=== PATIENT | male | born 1940 | race Caucasian/White ===

== ENCOUNTER 2016-04-19 09:40 | Inpatient (IN) | payer MEDICARE, BC ==
[2016-04-19] MEDS ORDERED: Ondansetron INJ* 2 MG/ML VIAL IV ONE (10:31)
[2016-04-19] MEDS ORDERED: HYDROmorphone* 1 MG/ML 1 ML SYR IV ONE (10:31)
[2016-04-19 11:25] LABS: Hematocrit 47 % (42-52); Hemoglobin 15.6 g/dl (14.0-18.0); Mean Corpuscular HGB Conc 34 g/dl (31-36); Mean Corpuscular Hemoglobin 31 pg (27-31); Mean Corpuscular Volume 93 fL (80-94); Mean Platelet Volume 8 um3 (7.4-10.4); Red Blood Count 4.99 10^6/ul (4.0-5.4); Red Cell Distribution Width 13 % (10.5-15); White Blood Count 15.9 10^3/ul (3.5-10.8)
[2016-04-19 11:45] LABS: Albumin 4.2 g/dL (3.2-5.2); BUN/Creatinine Ratio 21.4 (8-20); C Reactive Protein 65.87 mg/L (< 5.00); Calcium 9.3 mg/dL (8.6-10.3); EGFR African American 82.7 (>60); EGFR Non-African American 64.3 (>60); Globulin 2.9 g/dL (2-4); Potassium 4.1 mmol/L (3.5-5.0); Total Bilirubin 1.2 mg/dL (0.2-1.0); Total Protein 7.1 g/dL (6.4-8.9)
[2016-04-19] MEDS ORDERED: Iohexol 300* (CONTRAST) 10 ML SDV IV ONE ×2 (11:47→11:50)
[2016-04-19 11:50] LABS: Urine Bacteria Absent (Absent); Urine Bilirubin Negative (Negative); Urine Glucose Negative (Negative); Urine Nitrite Negative (Negative)
--- NOTE | 2016-04-19 12:31 | RAD ---
INDICATION: Diffuse abdominal pain. COMPARISON: Comparison is made with prior CTs of the abdomen and pelvis from August 04, 2007 and February 06, 2016. TECHNIQUE: A CT scan of the abdomen and pelvis was performed with intravenous and oral contrast following intravenous injection of 127 ml of Omnipaque 300 nonionic contrast. Contiguous axial sections were obtained from the lung bases through the symphysis pubis. Images were reconstructed in the coronal and sagittal planes. FINDINGS: There are small dependent infiltrates in both lower lobes suggestive of atelectasis. No pleural effusion is present. The liver is normal in size and decreased in attenuation. There are several small hypodense lesions present within the anterior aspect of the liver. The 2 largest appear to represent cysts measuring up to 1.2 cm in size and unchanged from the prior study. No calcified gallstones are seen. No intra or extra hepatic ductal distention is seen. The spleen is normal in size. There is a hyperenhancing lesion present in the anterolateral aspect of the spleen measuring 1.2 cm in size. This is seen on the prior 2 studies and is unchanged from the prior exam. This may represent a hemangioma although is a nonspecific finding. There is mild diffuse enlargement of the pancreas. There is interstitial stranding around the pancreas in the retroperitoneal fat. These findings are nonspecific although would be most consistent with pancreatitis. The pancreas enhances normally. There is no evidence for necrosis or hemorrhage. In addition there is a small amount of free intraperineal fluid in the paracolic gutters and within the pelvis. The kidneys and adrenal glands are normal in size. No hydronephrosis is seen. No significant focal renal abnormality is seen. The aorta is normal in caliber with moderate calcific plaque present. No significant enlarged retroperitoneal lymph nodes are seen. The stomach, small and large bowel appear nondistended. The appendix is within normal limits. There is mild to moderate descending and sigmoid diverticulosis without evidence for diverticulitis. No free intraperitoneal air is seen. No significant focal osseous abnormality is seen. IMPRESSION: FINDINGS MOST CONSISTENT WITH ACUTE INTERSTITIAL PANCREATITIS. RECOMMEND CLINICAL CORRELATION.
[2016-04-19] MEDS ORDERED: Ondansetron INJ* 2 MG/ML VIAL IV PRN (13:43)
[2016-04-19] MEDS: Heparin VIAL(*) 5000 UNITS/ML VIAL (FIVE THOUSAND) SUBCUT SCH ×2 (14:57→20:54)
[2016-04-19] MEDS: Pantoprazole IV* 40 MG IV SCH (15:04)
[2016-04-19] MEDS: Morphine INJ* 2 MG/ML 1 ML SYRINGE IV PRN ×2 (16:27→20:54)
--- NOTE | 2016-04-19 19:46 | HP ---
HISTORY AND PHYSICAL: ADDENDUM: Mr. Hendrix is a 75-year-old male with a history of hypertension, osteoarthritis, who prese nts complaining of abdominal pain. His CT shows acute pancreatitis. He is going to be admitted to the medical floor and treated adequately with n.p.o. status and intravenous fluid resuscitation. Fo r further details of the patient's presentation and plan, please see history and physical dictated Lorrie Calderon NP, on 04/19/16, with which I agree. [id number]/[facility] #: [id number]
--- NOTE | 2016-04-19 19:46 | HP ---
HISTORY AND PHYSICAL: DATE OF ADMISSION: 04/19/16 PRIMARY CARE PROVIDER: Jonas Wetzel MD ATTENDING PHYSICIAN: Mikayla Valenzuela MD* (dictated by Shaheen Hernandez NP). CHIEF COMPLAINT: Abdominal pain with associated nausea and vomiting. HISTORY OF PRESENT ILLNESS: Mr. Hendrix is a 75-year-old male with past medical history significant for hypertension, who reports yesterday after eating some chilly, he developed diaphoresis, dizziness, paleness that progressed to nausea , vomiting, and abdominal pain. The patient reports epigastric pain that radiated to his lower abdomen. The patient also reported shortness of breath during the episode of pain. The patient states that 2 days prior, his stomach felt off, "tight." The patient denies any fever, chills, difficulty urinating, diarrhea or constipation. The patient reports some nausea and vomiting that resolved earlier this morning. The patient also reports rib pain after a fall and injury to his ribs back in January. Due to concern for the patient's continued abdominal pain and nausea and vomiting, he presented to the emergency room for further evaluation of his symptoms. While in the emergency room, the patient received IV pain medication and Zofran and had an abdominal pelvis CT scan showing findings consistent with a pancreatitis. Hospitalists were asked to evaluate the patient for admission. PAST MEDICAL HISTORY: Hypertension. PAST SURGICAL HISTORY: 1. 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 2. Status post a fistula removed from his buttock in the . HOME MEDICATIONS: Include, 1. Lisinopril 30 mg oral daily. 2. Hydrochlorothiazide 12.5 mg oral daily. 3. Fish oil 1000 mg oral daily. 4. Multivitamin 1 tablet oral daily. 5. Glucosamine 1000 mg oral daily. 6. Vitamin C 1000 mg oral daily. 7. Aspirin 81 mg oral daily. 8. MSM 1500 mg oral daily. ALLERGIES: PENICILLIN causes hives. FAMILY HISTORY: The patient denies any family history of coronary artery disease. The patient's mother had diet controlled diabetes mellitus. The patient's father had a history of colorectal cancer. SOCIAL HISTORY: The patient is a former smoker. He quit smoking cigarettes approximately 30 years ago and then smoked cigars intermittently and quit smoking cigars approximately 5 years ago. The patient denies recreational drug use. The patient was very vague in his alcohol intake, stating that he drinks as much as he feels like, sometimes daily but not always. The patient is retired, he used to work as a drafter. The patient is and lives with his , Val Hendrix, who will be his surrogate decision maker in the event he is unable to make decisions for himself. REVIEW OF SYSTEMS: I performed a 14-point review of systems. All the pertinent positives and negatives are mentioned in the history of present illness. The remaining review of systems is negative. PHYSICAL EXAMINATION GENERAL APPEARANCE: The patient is alert, pleasant, and appears to be in no acute distress. VITAL SIGNS: Temperature 98.1, heart rate 57, respiratory rate 18, O2 sat 95% on room air, blood pressure 141/57. HEENT: Normocephalic, atraumatic. Pupils are equal and reactive to light. Extraocular movements are intact. Mucous membranes are dry. RESPIRATORY: There is no accessory muscle use. Lungs are clear to auscultation bilaterally. CARDIOVASCULAR: Regular rate and rhythm. S1 and S2 present. There is no murmurs, rubs, or gallops heard. ABDOMEN: Soft, nondistended. There is tenderness to palpation to the epigastric area and right upper quadrant. There are some hypoactive bowel sounds present x4. EXTREMITIES: There is no lower extremity edema. DP and PT pulses are 2+ and symmetric. MUSCULOSKELETAL: There is no clubbing or cyanosis noted. The patient exhibits good strength in all extremities. NEUROLOGIC: The patient is alert and oriented x4. Cranial nerves II through X11 are grossly intact. PSYCHOLOGICAL: The patient is calm and cooperative. SKIN: There is no rashes or abnormalities seen. DIAGNOSTIC STUDIES/LAB DATA: Sodium 134, potassium 4.1, chloride 99, CO2 of 27 , BUN 24, creatinine 1.12, glucose 150. White blood cell count 15.9, hemoglobin 15.6, hematocrit 47, platelet count 260. CRP 65.87, AST 23, ALT 14, bilirubin 1.20, lipase 864. Urinalysis significant for protein 1+ and blood 1+. Abdomen and pelvis CT from today. Radiologist's impression: Findings most consistent with acute interstitial pancreatitis. Recommend clinical correlation. IMPRESSION: Mr. Hendrix is a 75-year-old male with past medical history significant for hypertension, who presents for abdominal pain with associated nausea and vomiting. He will be admitted as an inpatient for acute pancreatitis. ASSESSMENT: 1. Acute pancreatitis. The patient will be placed on bowel rest and n.p.o. at this time. As his pain improves, we will consider starting him on a clear liquid diet. The patient will have IV fluids. We will recheck the patient's labs in the morning, trending his lipase and amylase. We will also follow the patient's liver function tests. We will add a triglyceride to the patient's emergency room labs. We will also get a gallbladder ultrasound. 2. Hypertension. At this time I will hold the patient's lisinopril and hydrochlorothiazide. 3. Fluid, electrolytes, and nutrition. N.p.o. The patient will have LR running at 125 mL in hour. 4. Code status. Full code. 5. DVT prophylaxis. The patient is at moderate risk and on subcu heparin. 6. Disposition. Inpatient. TIME SPENT: The time spent for this admission was 60 minutes, 35 minutes was spent face to face with the patient and discussing medications, past medical history and the events leading up to his arrival today and performing a physical examination. The case has been reviewed with the attending, Dr. Valenzuela, who agrees with the plan of care. Reviewed by SHAHEEN HERNANDEZ, DONNA-Pancho 04/19/16 6004 ADDENDUM TO HISTORY AND PHYSICAL: Mr. Hendrix is a 75-year-old male with a history of hypertension, osteoarthritis, who presents complaining of abdominal pain. His CT shows acute pancreatitis. He is going to be admitted to the medical floor and treated adequately with n.p.o. status and intravenous fluid resuscitation. For further details of the patient's presentation and plan, please see history and physical dictated by Shaheen Hernandez NP, on 04/19/16, with which I agree. Mikayla Valenzuela MD CC: Jonas Wetzel MD* [id number]/[facility] #: [id number]/[facility] #: [id number] ARMIDA
--- NOTE | 2016-04-19 22:43 | RAD ---
Indication: Pancreatitis. Real-time sonography of the right upper quadrant was performed. The liver is normal in size. Anechoic lesions in the right lobe measuring 14 x 14 x 14 mm and 8 x 7 x 7 mm appear to correspond to cysts. No other focal lesions or intrahepatic biliary duct dilatation is noted. The gallbladder demonstrates no gallstones, pericholecystic fluid or wall thickening. Common duct measures 5 mm. The pancreas is not well visualized. The right kidney measures 12.4 x 4.7 x 5.1 cm with no hydronephrosis. The aorta and inferior vena cava are limited due to overlying gas. IMPRESSION: No evidence of cholelithiasis or biliary duct dilatation is noted.
[2016-04-20] MEDS: Morphine INJ* 2 MG/ML 1 ML SYRINGE IV PRN ×4 (03:30→19:35)
[2016-04-20 06:18] LABS: Hematocrit 44 % (42-52); Hemoglobin 14.9 g/dl (14.0-18.0); Mean Corpuscular HGB Conc 34 g/dl (31-36); Mean Corpuscular Hemoglobin 32 pg (27-31); Mean Corpuscular Volume 94 fL (80-94); Mean Platelet Volume 8 um3 (7.4-10.4); Red Blood Count 4.72 10^6/ul (4.0-5.4); Red Cell Distribution Width 14 % (10.5-15); White Blood Count 17.3 10^3/ul (3.5-10.8)
[2016-04-20 06:33] LABS: Albumin 3.5 g/dL (3.2-5.2); BUN/Creatinine Ratio 22.5 (8-20); Calcium 8.7 mg/dL (8.6-10.3); EGFR African American 107.8 (>60); EGFR Non-African American 83.8 (>60); Globulin 2.6 g/dL (2-4); Potassium 4.4 mmol/L (3.5-5.0); Total Bilirubin 1.3 mg/dL (0.2-1.0); Total Protein 6.1 g/dL (6.4-8.9)
[2016-04-20] MEDS: Heparin VIAL(*) 5000 UNITS/ML VIAL (FIVE THOUSAND) SUBCUT SCH ×3 (06:46→21:43)
[2016-04-20] MEDS: Aspirin Low Dose CHEW TAB* 81 MG PO SCH (07:31)
--- NOTE | 2016-04-20 07:46 | ED ---
Gordon May Matthew, scribed for Dawson Younger MD on 04/19/16 at 1218 . Abdominal Pain/Male - HPI Summary HPI Summary: A 75 y/o male presents to the ED with sudden, constant, diffuse abdominal pain since yesterday. He's unable to describe the pain, its rated 8/10 in severity, and worse with movement and deep breaths. Associated symptoms include vomiting - yesterday, appetite, and fever. The patient currently denies nausea. He has a Hx of 4 fractured ribs in 01/2017. His last BM was yesterday. PMHx includes HTN. - History of Current Complaint Chief Complaint: EDAbdPain Stated Complaint: ABD PAIN Time Seen by Provider: 04/19/16 10:15 Hx Obtained From: Patient Onset/Duration: Sudden Onset, Lasting Days, Still Present Timing: Constant Severity Initially: Moderate Severity Currently: Moderate Pain Intensity: 8 Pain Scale Used: 0-10 Numeric Location: Diffuse Radiates: No Aggravating Factor(s): Movement, Deep Breaths Alleviating Factor(s): Nothing Associated Signs And Symptoms: Positive: Fever, Decreased Appetite, Vomiting. Negative: Nausea - Allergies/Home Medications Allergies/Adverse Reactions: Allergies Allergy/AdvReac Type Severity Reaction Status Date / Time Penicillins Allergy Hives Verified 04/19/16 10:08 Home Medications: Home Medications Ascorbic Acid TAB* [Vitamin C TAB*] 1,000 mg PO DAILY 04/19/16 [History Confirmed 04/19/16] Glucosamine Hydrochloride [Glucosamine] 500 mg PO DAILY WITH MEAL 04/19/16 [ History Confirmed 04/19/16] Hydrochlorothiazide TAB* 12.5 mg PO DAILY WITH MEAL 04/19/16 [History Confirmed 04/19/16] Methylsulfonylmethane [MSM] 1,500 mg PO DAILY 04/19/16 [History Confirmed ] Multiple Vitamins W/ Minerals [Multivitamin Adults] 1 tab PO DAILY WITH MEAL 04/06 [History Confirmed 04/19/16] [place]-3 Fatty Acids [Fish Oil] 1,000 mg PO DAILY WITH MEAL 04/19/16 [History Confirmed 04/19/16] PMH/Surg Hx/FS Hx/Imm Hx Endocrine/Hematology History: Denies: Hx Diabetes Cardiovascular History: Reports: Hx Hypertension Denies: Hx Pacemaker/ICD History: Denies: Hx Renal Disease Sensory History: Denies: Hx Hearing Aid Psychiatric History: Denies: Hx Panic Disorder - Surgical History Surgery Procedure, Year, and Place: FISTULA REMOVED FROM BUTTOCK Infectious Disease History: No Infectious Disease History: Denies: Traveled Outside the [place] in Last 30 Days - Family History Known Family History: Positive: Other - Colon [place] - Social History Alcohol Use: None Hx Substance Use: No Substance Use Type: Reports: None Hx Tobacco Use: No Smoking Status (MU): Never Smoked Tobacco Review of Systems Positive: Fever Eyes: Negative ENT: Negative Cardiovascular: Negative Respiratory: Negative Positive: Abdominal Pain - diffuse, Vomiting - yesterday . Negative: Nausea Genitourinary: Negative Musculoskeletal: Negative Skin: Negative Neurological: Negative Psychological: Normal All Other Systems Reviewed And Are Negative: Yes Physical Exam Triage Information Reviewed: Yes Vital Signs On Initial Exam: Initial Vitals Temp Pulse Resp BP Pulse Ox 98.1 F 57 20 145/62 99 04/19/16 09:41 04/19/16 09:41 04/19/16 09:41 04/19/16 09:41 04/19/16 09:41 Vital Signs Reviewed: Yes Appearance: Positive: Well-Nourished, Obese Skin: Positive: Warm, Skin Color Reflects Adequate Perfusion, Dry Head/Face: Positive: Normal Head/Face Inspection Eyes: Positive: Normal ENT: Positive: Normal ENT inspection Neck: Positive: Supple, Nontender Respiratory/Lung Sounds: Positive: Clear to Auscultation, Breath Sounds Present Cardiovascular: Positive: RRR Abdomen Description: Positive: Soft, Distended, Other: - Diffuse abdominal tenderness Bowel Sounds: Positive: Hypoactive Musculoskeletal: Positive: Normal, Strength/ROM Intact Neurological: Positive: Alert, Oriented to Person Place, Time Psychiatric: Positive: Affect/Mood Appropriate Diagnostics - Vital Signs Vital Signs Temp Pulse Resp BP Pulse Ox 04/19/16 10:04 60 97 04/19/16 10:03 138/64 04/19/16 09:41 98.1 F 57 20 145/62 99 - Laboratory Lab Results: Lab Results 04/19/16 04/19/16 04/19/16 Range/Units 10:10 11:05 11:05 WBC 15.9 H (3.5-10.8) 10^3/ul RBC 4.99 (4.0-5.4) 10^6/ul Hgb 15.6 (14.0-18.0) g/dl Hct 47 (42-52) % MCV 93 (80-94) fL MCH 31 (27-31) pg MCHC 34 (31-36) g/dl RDW 13 (10.5-15) % Plt Count 260 (150-450) 10^3/ul MPV 8 (7.4-10.4) um3 Neut % (Auto) 86.2 H (38-83) % Lymph % (Auto) 6.8 L (25-47) % [place] % (Auto) 6.7 (1-9) % Eos % (Auto) 0 (0-6) % Baso % (Auto) 0.3 (0-2) % Absolute Neuts (auto) 13.7 H (1.5-7.7) 10^3/ul Absolute Lymphs (auto) 1.1 (1.0-4.8) 10^3/ul Absolute Monos (auto) 1.1 H (0-0.8) 10^3/ul Absolute Eos (auto) 0 (0-0.6) 10^3/ul Absolute Basos (auto) 0.1 (0-0.2) 10^3/ul Absolute Nucleated RBC 0 10^3/ul Nucleated RBC % 0 Sodium 134 (133-145) mmol/L Potassium 4.1 (3.5-5.0) mmol/L Chloride 99 L (101-111) mmol/L Carbon Dioxide 27 (22-32) mmol/L Anion Gap 8 (2-11) mmol/L BUN 24 (6-24) mg/dL Creatinine 1.12 (0.67-1.17) mg/dL Est GFR ( Amer) 82.7 (>60) Est GFR (Non-Af Amer) 64.3 (>60) BUN/Creatinine Ratio 21.4 H (8-20) Glucose 150 H (70-100) mg/dL Lactic Acid (0.5-2.0) mmol/L Calcium 9.3 (8.6-10.3) mg/dL Total Bilirubin 1.20 H (0.2-1.0) mg/dL AST 23 (13-39) U/L ALT 14 (7-52) U/L Alkaline Phosphatase 66 (34-104) U/L C-Reactive Protein 65.87 H (< 5.00) mg/L Total Protein 7.1 (6.4-8.9) g/dL Albumin 4.2 (3.2-5.2) g/dL Globulin 2.9 (2-4) g/dL Albumin/Globulin Ratio 1.4 (1-3) Triglycerides 41 mg/dL Lipase 864 H (11.0-82.0) U/L Urine Color Becky Urine Appearance Turbid Urine pH 5.0 (5-9) Ur Specific [place] 1.023 (1.010-1.030) Urine Protein 1+(30 mg/dl) H (Negative) Urine Ketones Negative (Negative) Urine Blood 1+ H (Negative) Urine Nitrate Negative (Negative) Urine Bilirubin Negative (Negative) Urine Urobilinogen Negative (Negative) Ur Leukocyte Esterase Negative (Negative) Urine WBC (Auto) Absent (Absent) Urine RBC (Auto) Absent (Absent) Amorphous Crystals Present H (Absent) Urine Bacteria Absent (Absent) Urine Glucose Negative (Negative) 04/19/16 Range/Units 11:05 WBC (3.5-10.8) 10^3/ul RBC (4.0-5.4) 10^6/ul Hgb (14.0-18.0) g/dl Hct (42-52) % MCV (80-94) fL MCH (27-31) pg MCHC (31-36) g/dl RDW (10.5-15) % Plt Count (150-450) 10^3/ul MPV (7.4-10.4) um3 Neut % (Auto) (38-83) % Lymph % (Auto) (25-47) % [place] % (Auto) (1-9) % Eos % (Auto) (0-6) % Baso % (Auto) (0-2) % Absolute Neuts (auto) (1.5-7.7) 10^3/ul Absolute Lymphs (auto) (1.0-4.8) 10^3/ul Absolute Monos (auto) (0-0.8) 10^3/ul Absolute Eos (auto) (0-0.6) 10^3/ul Absolute Basos (auto) (0-0.2) 10^3/ul Absolute Nucleated RBC 10^3/ul Nucleated RBC % Sodium (133-145) mmol/L Potassium (3.5-5.0) mmol/L Chloride (101-111) mmol/L Carbon Dioxide (22-32) mmol/L Anion Gap (2-11) mmol/L BUN (6-24) mg/dL Creatinine (0.67-1.17) mg/dL Est GFR ( Amer) (>60) Est GFR (Non-Af Amer) (>60) BUN/Creatinine Ratio (8-20) Glucose (70-100) mg/dL Lactic Acid 1.4 (0.5-2.0) mmol/L Calcium (8.6-10.3) mg/dL Total Bilirubin (0.2-1.0) mg/dL AST (13-39) U/L ALT (7-52) U/L Alkaline Phosphatase (34-104) U/L C-Reactive Protein (< 5.00) mg/L Total Protein (6.4-8.9) g/dL Albumin (3.2-5.2) g/dL Globulin (2-4) g/dL Albumin/Globulin Ratio (1-3) Triglycerides mg/dL Lipase (11.0-82.0) U/L Urine Color Urine Appearance Urine pH (5-9) Ur Specific [place] (1.010-1.030) Urine Protein (Negative) Urine Ketones (Negative) Urine Blood (Negative) Urine Nitrate (Negative) Urine Bilirubin (Negative) Urine Urobilinogen (Negative) Ur Leukocyte Esterase (Negative) Urine WBC (Auto) (Absent) Urine RBC (Auto) (Absent) Amorphous Crystals (Absent) Urine Bacteria (Absent) Urine Glucose (Negative) Result Diagrams: 04/20/16 05:58 04/20/16 05:58 Lab Statement: Any lab studies that have been ordered have been reviewed, and results considered in the medical decision making process. - CT A/P CT CT Interpretation: Positive (See Comments) - IMPRESSION: FINDINGS MOST CONSISTENT WITH ACUTE INTERSTITIAL PANCREATITIS. RECOMMEND CLINICAL CORRELATION. CT Interpretation Completed By: Radiologist Abdominal Pain Fem Course/Dx - Course Assessment/Plan: A 75 y/o male presents to the ED with sudden, constant, diffuse abdominal pain since yesterday. Labs were reviewed and show an elevated WBC of 15.9. A/P CT shows acute interstitial pancreatitis. Discussed the case with Dr. Valenzuela will admit the patient into her services. - Diagnoses Provider Diagnoses: PANCREATITIS - Provider Notifications Discussed Care Of Patient With: Dr. Valenzuela (Hospitalist) at 13:10 -- Notified of patient's history and she will admit the patient into her services. Discharge - Discharge Plan Condition: Stable Disposition: ADMITTED TO [facility] documentation as recorded by the Gordon lopez Matthew accurately reflects the service I personally performed and the decisions made by me, Dawson Younger MD.
--- NOTE | 2016-04-20 12:27 | PN ---
Subjective Date of Service: 04/20/16 Interval History: This is a 75 yo gentleman with a h/o HTN who presented with complaints of epigastric pain, n/v. CT showed evidence of acute pancreatitis with lipase ~ 850. He was admitted yesterday with acute pancreatitis. Patient remains NPO at this time. He required regular morphine overnight for abdominal pain, reports some improvement this am. He has no appetite. Denies n /v since admission. No BM in ~ 2 days. Objective Active Medications: Aspirin (Aspirin Low Dose Tab*) 81 mg PO DAILY [facility] Last Admin: 04/20/16 07:31 Dose: 81 mg Heparin Sodium (Porcine) (Heparin Vial(*)) 5,000 units SUBCUT Q8HR [facility] Last Admin: 04/20/16 06:46 Dose: 5,000 units Lactated Ringer's (Lactated Ringers 1000 Ml Bag*) 1,000 mls @ 125 mls/hr IV PER RATE [facility] Last Admin: 04/20/16 07:36 Dose: 125 mls/hr Morphine Sulfate (Morphine Inj (Syringe)*) 2 mg IV Q4H PRN PRN Reason: PAIN Last Admin: 04/20/16 07:31 Dose: 2 mg Ondansetron HCl (Zofran Inj*) 4 mg IV Q6H PRN PRN Reason: NAUSEA Pantoprazole Sodium (Protonix Iv*) 40 mg IV Q24H [facility] Last Admin: 04/19/16 15:04 Dose: 40 mg Vital Signs: Temp Pulse Resp BP Pulse Ox 98.7 F 55 20 126/60 95 04/19/16 23:27 04/20/16 07:31 04/20/16 09:39 04/20/16 07:31 04/20/16 07:31 Oxygen Devices in Use Now: None Appearance: Well appearing elderly gentleman who appears younger than his stated age in NAD Neck: NL Appearance and Movements; NL JVP Respiratory: Symmetrical Chest Expansion and Respiratory Effort Cardiovascular: NL Sounds; No Murmurs; No JVD, RRR Abdominal: - - bowel sounds present, abd slightly distended, mild epigastric TTP Skin: No Rash or Ulcers Neurological: Alert and Oriented x 3 Result Diagrams: 04/20/16 05:58 04/20/16 05:58 Additional Lab and Data: Vital Signs: Temp Pulse Resp BP Pulse Ox 98.7 F 55 20 126/60 95 04/19/16 23:27 04/20/16 07:31 04/20/16 09:39 04/20/16 07:31 04/20/16 07:31 Diagnostic Imaging: CT abd/pelvis - evidence of acute pancreatitis GB US - no cholelithasis, CBD 5mm Assess/Plan/Problems-Billing Assessment: This is a 75 yo male with a h/o HTN who presented with acute onset abdominal pain, n/v. Admitted with acute pancreatitis, likely related to alcohol. - Patient Problems (1) Acute pancreatitis Comment: Nl GB US and TGs Possibly ETOH induced, patient was not forth coming on his consumption with his daughter in the room but indicated that he occasionally drinks heavily Reviewed meds, both lisinopril and HCTZ are class III medications, neither are new to him Will keep him NPO at this time with IVF, appears to be improving Can trial advancing to clear liquids this evening if he develops an appetite (2) Hypertension Comment: Normotensive Holding home antihypertensives at this time Status and Disposition: Patient requires continued hospital stay. Anticipate discharge in 1-2 days
[2016-04-20] MEDS: Pantoprazole IV* 40 MG IV SCH (13:25)
[2016-04-21] MEDS: Heparin VIAL(*) 5000 UNITS/ML VIAL (FIVE THOUSAND) SUBCUT SCH ×2 (07:15→12:44)
[2016-04-21] MEDS: Aspirin Low Dose CHEW TAB* 81 MG PO SCH (08:12)
[2016-04-21 09:00] VITALS: BP 147/59
[2016-04-21 11:55] LABS: Albumin 3.1 g/dL (3.2-5.2); BUN/Creatinine Ratio 22.4 (8-20); Calcium 8.5 mg/dL (8.6-10.3); EGFR African American 113.6 (>60); EGFR Non-African American 88.4 (>60); Globulin 2.7 g/dL (2-4); Total Bilirubin 1.5 mg/dL (0.2-1.0); Total Protein 5.8 g/dL (6.4-8.9)
--- NOTE | 2016-04-22 01:55 | DS ---
DISCHARGE SUMMARY: DATE OF ADMISSION: 04/19/16 DATE OF DISCHARGE: 04/21/16 PRIMARY CARE PHYSICIAN: Dr. Jonas Wetzel. DISCHARGE DIAGNOSIS: Pancreatitis most likely alcohol related. SECONDARY DIAGNOSIS: Hypertension. MEDICATIONS AT DISCHARGE: Unchanged from admission and include: 1. Lisinopril 30 mg daily. 2. Hydrochlorothiazide 12.5 mg daily. 3. Fish oil 1000 mg a day. 4. Multivitamin 1 tablet daily. 5. Glucosamine 1000 mg daily. 6. Vitamin C 1000 mg daily. 7. Aspirin 81 mg daily. 8. MSM 1500 mg daily. LABORATORY DATA: On the day of discharge showed a sodium of 131, potassium 4.0 , chloride 100, carbon dioxide 26, BUN 19, creatinine 0.85. Liver function tests showed bilirubin of 1.5. Remaining liver function tests were unremarkable with AST of 18, ALT of 9, and alkaline phosphatase of 56. Lipase was 45. The patient came in with a lipase of 864. Gallbladder ultrasound obtained on 04/19/16, impression: "No evidence of cholelithiasis or biliary duct dilatation is noted." CT of the abdomen and pelvis obtained on 04/19/16, impression: "Findings are consistent with acute interstitial pancreatitis. Recommend clinical correlation." HOSPITALIZATION COURSE: Dawson Hendrix is a 75-year-old male with a history of hypertension who also has a history of binge drinking. The patient is not really forthcoming person in regards to his drinking habits, but overall, when I spoke with him about the possibility of etiologies of pancreatitis, he stated "yes, I probably got it from drinking." The patient apparently was binge drinking a couple of days prior to his presentation with acute pancreatitis. His lipase was over 800. He had severe abdominal pain. He did very well. He was placed initially on n.p.o. and then introduced to clear liquid diet 24 hours later. His lipase initially dropped to 200 and was back to normal by the time of discharge. By the time of discharge, he had complaints of some abdominal distention, but then he had only one bowel movement for the past 5 days and it occurred on the day of discharge. He denies any pain. He tolerated soft diet and he is going to be discharged to follow up with his primary care provider, Dr. Wetzel, in approximately 4 to 7 days. DIET AT DISCHARGE: [place] for 5 days, then advanced as tolerated. PHYSICAL EXAMINATION AT THE TIME OF DISCHARGE: Blood pressure of 147/59, heart rate of 58 and regular, respiratory rate 16, oxygen saturation 97% on room air, temperature 98.0. General: The patient is a very pleasant 75-year-old male who is in no acute distress. Alert, awake, and oriented x3. HEENT: Head: Atraumatic, normocephalic. Eyes: Pupils equal, reactive to light and accommodation. Oropharynx clear. Mucosa moist. Neck: Supple. No JVD, no bruit bilaterally. Cardiovascular: Regular rate and rhythm. No murmur. Respiratory: Clear to auscultation bilaterally. Abdomen: Soft, nontender. Bowel sounds present in all 4 quadrants. Extremities: There is no edema. Pulses are +2 bilaterally. No clubbing or cyanosis. Neuro Evaluation: Speech clear. Cranial nerves II through XII grossly intact. Motor strength is 5/5 bilaterally. Please note this is a short summary of the patient's hospitalization. Please refer to further medical records for details. TIME SPENT: Approximately 40 minutes were spent on the patient's discharge. C: Dr. Wetzel* [id number]/[facility] #: [id number] ARM[place]
== END 2016-04-21 14:15 | disposition home or self-care (01) | DRG 440 ==
LOC: ED 09:40 → MED 13:11
PROVIDERS: ADMIT Internal Medicine; ATTEND Internal Medicine
DX: K85.20 Alcohol induced acute pancreatitis without necrosis or infection (principal); I10 Essential (primary) hypertension; M19.90 Unspecified osteoarthritis, unspecified site; Z79.82 Long term (current) use of aspirin; Z79.899 Other long term (current) drug therapy; Z88.0 Allergy status to penicillin; Z83.3 Family history of diabetes mellitus; Z80.0 Family history of malignant neoplasm of digestive organs; Z87.891 Personal history of nicotine dependence
CPT/HCPCS: 36415; 74177; 76705; 80053; 81003; 81015; 82150; 82977; 83605; 83690; 84478; 85025; 86140; A9270-GY; J1170; J1644; J2270; J2405; Q9967